=== PATIENT | male | born 2005 | race Caucasian/White ===

== ENCOUNTER 2023-11-10 13:41 | Emergency (ER) | payer OTHER, SELFPAY ==
[2023-11-10 13:42] VITALS: BP 107/84; PULSE 95; RESP 16; TEMP 36.3; O2SAT 99; BMI 23.3
[2023-11-10 13:44] VITALS: BP 107/84; PULSE 95; RESP 16; TEMP 36.3; O2SAT 99
--- NOTE | 2023-11-10 14:14 | US_ITS ---
INDICATION: Left testicular pain. EXAMINATION: Ultrasound US Scrotum (Contents) TECHNIQUE: Realtime ultrasound of the testicles was performed with grayscale, Color Doppler and spectral Doppler analysis. COMPARISON: No relevant prior comparison study available FINDINGS: RIGHT: TESTIS: The right testicle measures 4.8 x 2.9 x 2.4 cm. Normal in size and echotexture, without focal lesion. COLOR DOPPLER: Normal arterial flow present in the testicle with monophasic waveforms. EPIDIDYMIS: Normal in size and echotexture, without focal lesion measuring about 1.4 x 0.7 x 0.8 cm. [Normal color Doppler flow pattern in the epididymis. HYDROCELE: None. VARICOCELE: None. LEFT: TESTIS: The left testicle measures 4.8 x 3 x 2 cm. Normal in size and echotexture, without focal lesion. COLOR DOPPLER: Normal arterial flow present in the testicle with monophasic waveforms. EPIDIDYMIS: Normal in size and echotexture, without focal lesion measuring about 1 x 0.7 x 0.8 cm. [Normal color Doppler flow pattern in the epididymis. HYDROCELE: Very small left hydrocele is seen. VARICOCELE: None. US/Testicular with Arterial Flow IMPRESSION: 1. No evidence of testicular torsion at the time this examination was performed. 2. Small left hydrocele. Electronically Signed: Chuckie Morrison MD at 15:15 EST ,
[2023-11-10 14:37] LABS: Bacteria 0 SEEN /hpf (None Seen); Mucous, Urine 0 SEEN /hpf (<or=2+); Red Blood Cells-Urine 0 SEEN /hpf (0-5); Squamous Epithelial Cells - UA 0 SEEN /hpf (0-5); White Blood Cells 0 SEEN /hpf (0-5)
[2023-11-10 14:40] LABS: Color, Urine Yellow (Yellow); Glucose, Dipstick Normal (Normal); Ketone-Dipstick Negative (Negative); Leukocyte Esterase-Dipstick Negative /ul (Negative); Nitrite-Dipstick Negative (Negative); Occult Blood-Urine Negative /ul (Negative); Protein-Dipstick 15 mg/dl (Negative); Urine Bilirubin Dipstick Negative (Negative); Urine Clarity Clear (Clear); Urine Urobilinogen 1 mg/dl (Normal)
--- NOTE | 2023-11-10 15:07 | EX.ED.GUMALE ---
HPI History of Present Illness Chief Complaint: Male Pain/Injury Informant: patient Narrative Narrative: Patient presenting with left testicular pain. He states it really started yesterday evening. It has been intermittent. It is in the left testicle with no pain elsewhere such as the groin, abdomen, flank, back. No fevers or chills. A little nausea at times but no vomiting. No urinary symptoms or discharge. No exposure to STDs or history of STD or suspicion for 1 of those. No injury or trauma. He states it has felt weird in this area for the past 2 weeks but no pain like he has had since last night. He states the pain has not been severe. [facility] Medical History Asthma Home Medications albuterol sulfate 90 mcg/actuation aerosol inhaler (Proventil HFA) 2 inh inhalation Q4H PRN shortness of breath or wheezing 11/10/23 [History Last Taken Unknown] Allergy/AdvReac Type Severity Reaction Status Date / Time No Known Allergies Allergy Verified 11/10/23 13:42 Social History Smoking Status: Never smoker ROS ROS ED Constitutional Constitutional ED: Denies chills or fever(s) Gastrointestinal Gastrointestinal: Reports nausea; Denies abdominal pain or vomiting Genitourinary Genitourinary ED: Reports as per HPI and scrotal pain; Denies burning urination, dysuria, flank pain, hematuria, testicular swelling or urinary frequency Musculoskeletal Musculoskeletal: Denies back pain Neurologic Neurologic: Denies headache(s), paresthesias or weakness EXAM Physical Exam Const Vital Signs: 11/10/23 13:42 11/10/23 13:44 Temperature 97.3 F L 97.3 F L Temperature Source Temporal Temporal Pulse Rate 95 95 Respiratory Rate 16 16 Blood Pressure 107/84 H 107/84 H Blood Pressure Mean 91 91 Pulse Ox 99 99 Oxygen Delivery Method Room Air Room Air Positive well nourished and well developed Constitutional Narrative: Well-Appearing General Appearance ED: well developed and NAD GI non-tender and non-distended Auscultation: normoactive bowel sounds Palpation: soft no CVA tenderness Narrative: Tender left testicle proper, no epididymal tenderness. No swelling. Cremasterics intact. Examined while standing no hernias. Normal penis no urethral discharge. Normal scrotum on inspection. Right testicle and epididymis nontender. No blue dot sign or any other discoloration of the scrotum. Testes: Negative for testicular swelling Back/Spine no CVA tenderness Extremity normal to inspection Neuro oriented x3, CN's II-XII intact bilaterally and no sensory deficits noted Motor Exam: strength 5/5 throughout Psych mental status grossly normal Skin Lesions: no lesions Rashes: no rashes MDM MDM MDM Narrative Medical decision making narrative: With intermittent nature of the symptoms, torsion is considered, and an indication for calling ultrasound and for emergent ultrasound which was done. I reviewed the images and report which I agree with, negative for torsion and negative for abnormal blood flow to suggest infection/epididymoorchitis, we did send a urinalysis that was normal, GC and chlamydia are sent and pending but low suspicion given history. The ultrasound did show a small left hydrocele. Unknown if this could be related to his pain or not, but can be followed up on as an outpatient. Will refer him to urology to have further evaluation. If his pain recurs and is severe which it has not been up to this point I recommend revisiting us for repeat ultrasound to rule out torsion which is not seen on this eval. Lab Data Attestation: I reviewed the patient's lab results. Labs: Laboratory Results - last 24 hr 11/10/23 14:30 Urine Color Yellow Urine Clarity Clear Urine pH 6.0 Ur Specific [place] 1.020 Urine Protein 15 H Urine Glucose (UA) Normal Urine Ketones Negative Urine Occult Blood Negative Urine Nitrite Negative Urine Bilirubin Negative Urine Urobilinogen 1 H Ur Leukocyte Esterase Negative Urine RBC 0 SEEN Urine WBC 0 SEEN Ur Squamous Epith Cells 0 SEEN Urine Bacteria 0 SEEN Urine Mucus 0 SEEN Radiography Diagnostic Testing: Clinical Impression(s) from Imaging Studies Testicular Ultrasound 11/10/23 14:14 IMPRESSION: 1. No evidence of testicular torsion at the time this examination was performed. 2. Small left hydrocele. Electronically Signed: Chuckie Morrison MD at 15:15 EST , Discharge Plan Triage Chief Complaint: Male Pain/Injury ED Provider: Vahe Lozada Dx/Rx/DC Orders Clinical Impression: Left hydrocele, Left testicular pain Instructions: ED Hydrocele, Type Not Specified Prescriptions: No Action albuterol sulfate [Proventil HFA] 90 mcg/actuation HFA aerosol inhaler 2 inh inhalation Q4H PRN (Reason: shortness of breath or wheezing) Primary Care Provider: Care Physician,No Primary Referrals: Kevin Ramos MD [Med Staff - Active Staff] - 5-7 Days (if pain does not self-resolve) Activity Restrictions/Additional Instructions: ibuprofen as needed for pain. Disposition Disposition: Home, Self Care
== END 2023-11-10 15:37 | disposition home or self-care (01) ==
PROVIDERS: Emergency Provider Emergency Medicine; Visit Provider Emergency Medicine
DX: N50.812 Left testicular pain (principal); N43.3 Hydrocele, unspecified; R11.0 Nausea; J45.909 Unspecified asthma, uncomplicated
CPT/HCPCS: 76870; 81001; 87491; 87591; 93976; 99282